=== PATIENT | female | born 1940 | race Caucasian/White ===

== ENCOUNTER 2021-04-04 14:12 | Emergency (ER) | payer MEDICARE, SELFPAY ==
--- NOTE | ~2021-04-04 | CT_ITS ---
EXAMINATION: CT brain wo con DATE: 04/04/2021 15:02 INDICATION: Ground-level fall striking. Head. Scalp laceration at the vertex. TECHNIQUE: Computed tomography (CT) of the head was performed without intravenous contrast. The mA wa s adjusted according to patient size. Iterative reconstruction technique was employed. Exam dose: 68 1.00 mGy-cm total exam DLP. COMPARISON: None FINDINGS: There are skin leida of the scalp over the vertex. No skull fracture is detected. Included paranasal sinuses and the mastoid air cells are normally developed and aerated. No intracranial mass lesion or hemorrhage or cerebrovascular accident, midline shift or mass effect e ffect or subdural or epidural hematoma is detected. Bilateral carotid siphon internal carotid artery calcifications are noted. Bilateral ocular lens replacements. IMPRESSION: Scalp laceration of the vertex, with skin leida No skull fracture or acute intracranial finding Reviewed, dictated and finalized at [facility]. Reviewed, dictated and finalized at [facility].
[2021-04-04 14:15] VITALS: BP 131/50; PULSE 66; RESP 20; TEMP 36.9; O2SAT 96
--- NOTE | 2021-04-04 16:01 | ED.HEATRA ---
HPI - Head Injury General Chief complaint: Headache Stated complaint: fall Source: patient Mode of arrival: ambulatory Limitations: no limitations History of Present Illness HPI Narrative: this is a 80-year-old female that presents after she sustained a fall while trying to open a door at her assisted living and fell backwards hitting her head causing a laceration to the occipital scalp, patient did not lose consciousness currently on blood thinners for atrial fibrillation. Currently no blurry vision no headache no nausea vomiting no chest pain no shortness of breath. Complaint: head injury Onset (ago): hour(s) Mechanism of Injury: fall Place: home Loss of Consciousness: no Location of injury: occipital Severity: mild Severity scale (1-10): 2 Quality: dull Radiation: none Other Injuries: none Context: other anticoagulant use Associated symptoms: denies other symptoms Review of Systems Review of Systems: All systems reviewed & are unremarkable except as noted in HPI and below PMFSH Past Medical History Medical History Afib Exam Const: General: no acute distress Orientation/consciousness: patient oriented x3 HENMT: Head: normal to inspection Eyes: Conjunctivae: conjunctivae normal Pupils: Equal, round and reactive pupils present Neck: Neck: normal visual inspection, no lymphadenopathy and no meningeal signs Chest: Chest palpation & inspection: normal inspection of the chest Resp: Effort & Inspection: normal respiratory effort Auscultation: clear to auscultation bilaterally Cardio: Rate: regular rate Rhythm: regular rhythm : General: Yes no CVA tenderness Urinary Catheter: Urinary Catheter: patent and draining Skin: General skin exam: normal color Other: laceration occipital scalp approximately 3cm in length and gaping Neuro: General: patient oriented x3, moves all extremities, no meningeal signs and no focal motor deficits Extrem: General: normal to inspection and no pedal edema Psych: Appearance: grossly normal Mental Status: mental status grossly normal Thought content: Yes Normal thought content present Course Course Emergency Course: after reassessment of patient's sitting comfortably with no headaches no nausea or vomiting, patient received 4 leida and doing well. Procedures Laceration Laceration 1: Date: 04/04/21 Time: 14:04 Site: scalp Size (cm): 3 Description: linear ====== Skin Level ====== Skin layer closed with: leida Number of sutures: 4 ====== Subcutaneous Layer ====== ====== Muscle Layer ====== ====== Tendon Layer ====== Critical Care Time Critical Care Time Critical Care Time: No Discharge Plan Discharge Clinical Impression: Laceration Patient Disposition: Home, Self-Care Condition: Stable Instructions: Antibiotic Form, Head Laceration (ED) Additional Instructions: follow-up with primary care physician in 1 week for staple removal. Follow-up/Referrals: PHYSICIAN NOT ON STAFF,NONSTAFF [Primary Care Provider] - Time of Disposition: 16:06
[2021-04-04] MEDS: TETANUS,DIPHTHERIA,AC PERTUSSIS ADULT 0.5 ML (ADACEL) IM (16:18)
[2021-04-04 16:34] VITALS: BP 128/58; PULSE 68; RESP 20; TEMP 36.8; O2SAT 96
--- NOTE | 2021-04-04 16:40 | PC.NURSE ---
PT ARRIVED WITH IV ACCESS AND IV REMOVED WITH OUT DIFFICULTY
== END 2021-04-04 16:40 | disposition home or self-care (01) ==
PROVIDERS: Emergency Provider Emergency Medicine
DX: S01.01XA Laceration without foreign body of scalp, initial encounter (principal); W19.XXXA Unspecified fall, initial encounter
CPT/HCPCS: 12002; 70450; 90471; 90715; 99282; 99284